=== PATIENT | female | born 1985 | race Hispanic/Latino ===

== ENCOUNTER 2017-01-12 20:06 | Emergency (ER) | payer OTHER ==
[2017-01-12 20:53] VITALS: BMI 32.0
[2017-01-12 20:59] LABS: RBC URINE < 1 /hpf (0-3); URINE BACTERIA FEW (<OCC); URINE BILIRUBIN NEGATIVE (NEGATIVE); URINE BLOOD NEGATIVE (NEGATIVE); URINE COLOR STRAW (YELLOW); URINE GLUCOSE (UA) 50 mg/dL (Normal); URINE KETONE NEGATIVE (NEGATIVE); URINE LEUKOCYTE ESTERASE NEG Leu/uL (Negative); URINE PROTEIN NEGATIVE (NEGATIVE); URINE UROBILINOGEN 0.2-1.0 mg/dL (0.2-1.0); WBC URINE 2 /hpf (0-5)
[2017-01-12] MEDS ORDERED: Lactated Ringer's 1,000 ML IV SCH ×2 (21:00→23:45)
--- NOTE | 2017-01-12 23:15 | US ---
EXAM: US Retroperitoneal Limited, Renal CLINICAL HISTORY: 31 years old, female; Pain; Abdominal pain; Flank; Left lower quadrant (llq); ; Additional info: Back pain- R/O kid stones TECHNIQUE: Real-time ultrasound of the retroperitoneum (limited) with image documentation. COMPARISON: No relevant prior studies available. FINDINGS: Right kidney: Unremarkable in echogenicity and size measuring 11.3 x 5.7 x 5.4 cm. No stones. No solid mass. Fullness of the renal pelvis, without raj hydronephrosis. Left kidney: Unremarkable in echogenicity and size measuring 10.7 x 5.2 x 5.9 cm. echogenic foci are identified within the mid to lower pole, suggesting renal calculi. No solid mass. No hydronephrosis. Despite prolonged interrogation, neither ureteral jet was identified. IMPRESSION: Fullness of the right renal pelvis, without raj hydronephrosis. Despite prolonged interrogation, neither ureteral jet was visualized.
[2017-01-13] MEDS ORDERED: Morphine 5 MG/ML SYRINGE IVP STA (00:35)
[2017-01-13 10:46] VITALS: BP 94/48; PULSE 72; RESP 18; TEMP 98; O2SAT 99
== END 2017-01-13 06:43 | disposition home or self-care (01) ==
LOC: H.EROB2 20:06
DX: O26.93 Pregnancy related conditions, unspecified, third trimester (principal); M54.5 Low back pain; Z3A.31 31 weeks gestation of pregnancy
CPT/HCPCS: 76770; 81003; 96374; 99284; J2270; J7120

== ENCOUNTER 2017-03-18 19:00 | Inpatient (IN) | payer OTHER ==
[2017-03-18 20:24] VITALS: BMI 36.2
--- NOTE | 2017-03-18 20:54 | OBADHP ---
Datetime: 03/18/2017 20:15 Admit Comment, IP Provider: 32yo [id number] IUP at 40+w (EDC mar 14) c/ SROM late afternoon. + CTX prio r iiregular. No VB. +FM PNC: Cp/ Dr Fischer - chart rev'd Rh neg (given Rhogam); CF carrier Last sono Mar 2- 8lb 2oz cephalic PMH: denies PSH: LEEP cone biopsy Allergy sulfa PSOH: denies smoking ETOH drugs A: IUP at 40w SROM Unfavorable cervix Rh ne PLAN: Admit to L_D Discussion about condition, admission, IOL, labor, delivery, pain management, EFW risks complicato ins and ...she agree with IOL with Cytotec. Her questoins answered Pelvic Type - PN: Adequate Extremities - PN: Normal Abdomen - PN: Normal Back - PN: Normal Lungs - PN: Normal Heart - PN: Normal Thyroid - PN: Normal Neurologic - PN: Normal HEENT - PN: Normal General - PN: Normal Presentation-Admit: Vertex FHR - Baseline A Provider: 130 Amniotic Fluid Color, Provider: Clear Membranes, Provider: Ruptured Contraction Comments Provider: occ Pool Provider: Positive IP Hx Assessment: The History has been Reviewed and is Current IP Chief Complaint: Uterine contractions; Suspected ruptured membranes NICHD Variability Prov Fetus A: Moderate 6-25bpm NICHD Accel Fetus A IP Provider: 15X15 FHR Category Provider Fetus A: Category I NICHD Decel Fetus A IP Provider: None Dilatation, Provider: FT Effacement, Provider: 0 Station, Provider: high Genitourinary Exam: Normal DTRs - PN: Normal EGA AdmitDate IP: 40.4 IP Adm Impression: Term, intrauterine ; No Active Labor; Ruptured Membranes IP Admit Plan: Admit to unit; Initiate labor induction protocol Datetime: 01/12/2017 21:15 IP Chief Complaint Other: back pain Comments, ACOG Physical Exam: no cva tenderness Vital Signs Provider: Within Normal Limits
[2017-03-18 21:22] LABS: BASO % 0.2 % (0.0-2.0); EOS % 0.4 % (0.0-4.0); HEMOGLOBIN 12.1 g/dL (12.0-16.0); LYMPH % 25.2 % (20.0-40.0); MEAN CELL VOLUME 87.1 fl (81.0-99.0); MEAN CORPUSCULAR HEMOGLOBIN 29.1 pg (27.0-31.0); MEAN CORPUSCULAR HGB CONC 33.4 g/dL (33.0-37.0); MEAN PLATELET VOLUME 11.9 fl (7.2-11.7); MONO # 0.7 K/uL (0.0-0.8); NEUT % 68.2 % (50.0-75.0); RBC 4.17 Mil/uL (3.80-5.20); WHITE BLOOD COUNT 11.8 K/uL (4.8-10.8)
--- NOTE | 2017-03-19 06:56 | OBPN ---
Datetime: 03/18/2017 23:30 IP Progress Plan: Induction; Cervical Ripening IP Progress Note Comment: Notified that pt wanted Cervidil to start instead of Cytotec...Cervidil pl aced intravaginally Datetime: 03/18/2017 20:15 Pool Provider: Positive Membranes, Provider: Ruptured Amniotic Fluid Color, Provider: Clear Contraction Comments Provider: occ FHR - Baseline A Provider: 130 Presentation-Admit: Vertex NICHD Accel Fetus A IP Provider: 15X15 FHR Category Provider Fetus A: Category I NICHD Variability Prov Fetus A: Moderate 6-25bpm Dilatation, Provider: FT Effacement, Provider: 0 Station, Provider: high NICHD Decel Fetus A IP Provider: None Datetime: 01/12/2017 21:15 Vital Signs Provider: Within Normal Limits
[2017-03-19] MEDS ORDERED: Lactated Ringer's 1,000 ML IV SCH (08:30)
[2017-03-19] MEDS ORDERED: PRENATAL VIT PO SCH (09:00)
[2017-03-19] MEDS ORDERED: IRON CARB PO SCH (09:00)
[2017-03-19] MEDS ORDERED: [UNRECOGNIZED DRUG - OTHER] PO SCH (09:00)
[2017-03-19] MEDS ORDERED: Fentanyl/Bupivacaine HCl 250 ML EPI ONE (09:28)
[2017-03-19] MEDS ORDERED: Bupivacaine HCl 0.25% PF (10 ml) Inj ONE (09:29)
[2017-03-19] MEDS: Lactated Ringer's 1,000 ML IV SCH ×2 (09:30→14:30)
[2017-03-19] MEDS ORDERED: Oxytocin 30 units/LR 500ML 30 U/500 ML BAG IV ONE (12:10)
[2017-03-19] MEDS ORDERED: Oxytocin 30 UNITS in Sodium Chloride 0.9% 500 ML IV ONE (12:30)
[2017-03-19] MEDS ORDERED: Lidocaine 1% Inj (20ml) ONE (17:40)
[2017-03-20] MEDS ORDERED: Benzocaine/Menthol SPRAY TOP PRN ×2 (00:30→00:45)
[2017-03-20] MEDS ORDERED: Oxycodone/Acetaminophen 5/325 mg Tab PO PRN (00:30)
[2017-03-20] MEDS: Oxycodone/Acetaminophen 5/325 mg Tab PO PRN ×2 (01:28→19:09)
[2017-03-20 06:52] LABS: HEMOGLOBIN 11.5 g/dL (12.0-16.0); MEAN CELL VOLUME 86.7 fl (81.0-99.0); MEAN CORPUSCULAR HEMOGLOBIN 29.1 pg (27.0-31.0); MEAN CORPUSCULAR HGB CONC 33.6 g/dL (33.0-37.0); RBC 3.94 Mil/uL (3.80-5.20); RED CELL DISTRIBUTION WIDTH 14.3 % (11.5-14.5); WHITE BLOOD COUNT 22.2 K/uL (4.8-10.8)
[2017-03-21] MEDS: Oxycodone/Acetaminophen 5/325 mg Tab PO PRN (00:45)
--- NOTE | 2017-03-21 08:09 | OBPPN ---
Datetime: 03/21/2017 07:42 PP Pain Prov: Within normal limits PP Nausea Prov: Denies PP Flatus Prov: Yes PP BM Prov: No PP Breasts Prov: Normal PP Heart Prov: Normal PP Lungs Prov: Normal PP Abdomen/Uterus Prov: Normal PP Lochia Prov: Normal PP Vulva/Perineum Prov: Normal PP CVA Tenderness Prov: Normal PP Extremities Prov: Normal PP C/S Incision Prov: Not Applicable PP Comments Phys Exam Prov: Uterus firm, below umbilicus No deep Tenderness bilaterally Moderate lochia subjectively PP Progress Note Prov: day #2 status post normal spontaneous vaginal delivery, recovering well Discharge patient home today with instructions and precautions Patient will return to office in 6 weeks for follow-up Discussed plan patient patient questions answered. Vital Signs Provider PP: Reviewed; Within Normal Limits
--- NOTE | 2017-03-21 08:11 | OBDCSUM ---
Datetime: 03/21/2017 07:28 Discharged to, Provider: Home Follow up at, Provider: Dr. Fischer Disch Instr Activity: Normal activity Disch Instr Diet: Regular Discharge Diagnosis, Provider: Term Delivered Discharge Time: 03/21/2017 07:29 Follow up in weeks, Provider: 4-6 weeks Disch Referrals: None Disch Activity Restrictions: No exercising; No sexual activity; Nothing in vagina - [employer], kecia lockhart
[2017-03-21 18:51] VITALS: BP 120/65; PULSE 74; RESP 20; TEMP 98.2; O2SAT 100
--- NOTE | 2017-03-24 20:22 | OBDS ---
DELIVERY PERSONNEL Delivery Doctor: Denton Fischer MD Maid Supervisor: Jo Leggett RN Anesthesiologist: Ronald Resident: Janny MATERNAL INFORMATION Delivery Anesthesia: Local; Epidural Medications in Delivery: pitocin Estimated Blood Loss (ml): 200 Placenta Cultured: No Maternal Complications: Prolonged Second Stage > 2 Hrs Provider Comments: Delivered live baby boy at 2202 the baby was bulb suctioned on the perineum then transferred to the maternal chest. The cord was clamped and cut, 3 vessels noted. The cord blood was obtaied and sent to the lab.The placenta was delivered at 2206 intact, the EBL was 200 cc. The patien t had a second degree laceraion which was repaired with 2.0 rapide. The mother tolerated the procedur e well. Dr. Rose was called to evaluate the baby. The baby went to level 2 nursery with APGARS o f 7/8 weighing 4175g LABOR SUMMARY EDC: 03/14/2017 00:00 No. Babies in Womb: 1 Attempted: No Labor Anesthesia: Epidural LABOR INFORMATION Reason for Induction: Not Applicable Onset of Labor: 03/19/2017 09:00 Complete Dilatation: 03/19/2017 17:00 Cervical Ripening Agents: Cervidil (Annotations: Cervidil inserted at this time by Dr. Wiley. Patient tolerated well) Oxytocin: Augmentation Group B Beta Strep: Negative Antibiotics # of Doses: 0 Antibiotics Time of Last Dose: 0 Steroids Given: None Reason Steroids Not Administered: Not Applicable MEMBRANES Membranes Rupture Method: Spontaneous Rupture of Membranes: 03/18/2017 17:30 Length of Rupture (hrs): 28.53 Amniotic Fluid Color: Clear Amniotic Fluid Amount: Moderate Amniotic Fluid Odor: Normal STAGES OF LABOR Stage 1 hrs: 8 Stage 1 min: 0 Stage 2 hrs: 5 Stage 2 min: 2 Stage 3 hrs: 0 Stage 3 min: 4 Total Time in Labor hrs: 13 Total Time in Labor min: 6 VAGINAL DELIVERY Episiotomy: None Laceration Extension: Second Degree Laceration Type: Vaginal Laceration Repair: Yes Initial Vag Sponge Count: 15 Final Vag Sponge Count: 15 Initial Vag Sharps Count: 3 Final Vag Sharps Count: 3 Sponge Count Correct: Yes Sharps Count Correct: Yes Count Comment: count corrent BABY A INFORMATION Infant Delivery Date/Time: 03/19/2017 22:02 Method of Delivery: Vaginal Born in Route : No : N/A Forceps: N/A Vacuum Extraction: N/A Shoulder Dystocia : Yes SHOULDER DYSTOCIA BABY A Infant Delivery Date/Time: 03/19/2017 22:02 PRESENTATION/POSITION BABY A Presentation: Cephalic PLACENTA INFORMATION BABY A Placenta Delivery Time : 03/19/2017 22:06 Placenta Method of Delivery: Spontaneous Placenta Status: Delivered SCORES BABY A Heart Rate 1 min: >100 bpm Resp Effort 1 min: Slow, Irregular Reflex Irritability 1 min: Cough or Sneeze or Pulls Away Muscle Tone 1 min: Some Flexion of Extremities Color 1 min: Body Amelia, Extremities Blue Resuscitation Effort 1 min: Tactile Stimulation; Oxygen SCORE 1 MIN: 7 Heart Rate 5 min: >100 bpm Resp Effort 5 min: Slow, Irregular Reflex Irritability 5 min: Cough or Sneeze or Pulls Away Muscle Tone 5 min: Active Motion Color 5 min: Body Amelia, Extremities Blue Resuscitation Effort 5 min: Tactile Stimulation SCORE 5 MIN: 8 INFORMATION BABY A Gestational Age at Delivery: 40.5 Gestational Status: Term Outcome : Liveborn Infant Condition : Fair Infant Sex: Male IDENTIFICATION/MEDS BABY A ID Band Number: [id number] ID Band Location: Left Leg; Left Arm WEIGHT/LENGTH BABY A Infant Birthweight (gms): 4175 Weight (lb): 9 Weight (oz): 3 CORD INFORMATION BABY A No. Cord Vessels: 3 Nuchal Cord : N/A Nuchal Cord Other: n/a True Knot: n/a Infant Cord pH Baby Arterial: n/a Infant Cord pH Baby Venous: n/a Cord Blood Taken: Yes Banking/Donate Info: n/a Suction: Mouth; Nose; Pharynx
== END 2017-03-21 08:30 | disposition home or self-care (01) | DRG 775 ==
LOC: H.EROB2 19:00 → H.L&D 20:30 → H.OB/GYN 03-20 00:15
PROVIDERS: ADMIT Obstetrics & Gynecology; ATTEND Obstetrics & Gynecology
PROC: 10E0XZZ Delivery of Products of Conception, External Approach (ICD-10-PCS; principal; 2017-03-18)
PROC: 0KQM0ZZ Repair Perineum Muscle, Open Approach (ICD-10-PCS; 2017-03-18)
PROC: 4A1HXCZ Monitoring of Products of Conception, Cardiac Rate, External Approach (ICD-10-PCS; 2017-03-18)
DX: O63.1 Prolonged second stage (of labor) (principal); O70.1 Second degree perineal laceration during delivery; Z37.0 Single live birth; Z3A.40 40 weeks gestation of pregnancy